=== PATIENT | female | born 1955 | race Caucasian/White ===

== ENCOUNTER 2022-05-06 08:36 | Observation (INO) | payer OTHER ==
[2022-05-04 10:15] LABS: Absolute Lymphocytes (CBC) 1.5 K/uL (0.7-4.9); Hematocrit 38.5 % (36.0-45.0); Lymphocytes % 37.4 % (15.3-44.8); MPV 8.6 fL (7.6-11.3); RBC Red Blood Cell Count 4.09 M/uL (3.86-4.86)
[2022-05-04 10:19] LABS: Protime INR 0.99
[2022-05-04 10:27] LABS: Potassium 3.8 mmol/L (3.5-5.1)
[2022-05-04 12:39] LABS: Specific Gravity 1.005 (1.005-1.030); Urine Bilirubin NEGATIVE (Negative); Urine Blood Negative (Negative); Urine Clarity Clear (Clear); Urine Color Colorless (Yellow); Urine Glucose NEGATIVE (Negative); Urine Protein NEGATIVE (Negative); Urine Urobilinogen Normal (Normal)
[2022-05-06] MEDS ORDERED: Ringers Lactate 1,000 ML IV ONE ×3 (09:03→18:07)
[2022-05-06] MEDS: CEFAZOLIN SODIUM 2 GM/VIAL ONE ×2 (09:07→10:40)
[2022-05-06] MEDS ORDERED: FENTANYL CITR 250 MCG/5 ML ONE (09:15)
[2022-05-06] MEDS ORDERED: NS 0.9% VIAL 20 ML ONE (09:15)
[2022-05-06] MEDS ORDERED: propofoL 200 MG/20 ML VIAL IV ONE (09:15)
[2022-05-06] MEDS ORDERED: MIDAZOLAM HCL 2 MG/2 ML INJ ONE (09:15)
[2022-05-06] MEDS ORDERED: LIDOCAINE 2% MPF 5 ML VIAL ONE (09:15)
[2022-05-06] MEDS ORDERED: VECURONIUM 10 MG/VIAL IV ONE ×2 (09:15→12:42)
[2022-05-06] MEDS ORDERED: LIDOCAINE 1% W/EPI 1:100,000 50 ML MDV ONE (09:22)
[2022-05-06] MEDS ORDERED: NA CHLORIDE 0.9% 100 ML ONE (09:23)
[2022-05-06] MEDS ORDERED: CEFAZOLIN SODIUM 1 GM/VIAL ONE (09:46)
[2022-05-06 09:49] LABS: SARS-CoV-2 Antigen Rapid Res Negative (Negative)
[2022-05-06] MEDS ORDERED: SCOPOLAMINE HYDROBROMIDE PATCH TD ONE (09:52)
[2022-05-06] MEDS: VASOPRESSIN 20 UNIT/ML VIAL ONE ×3 (09:53→15:50)
[2022-05-06] MEDS ORDERED: dexAMETHasone 10 MG/ML VIAL ONE (10:53)
[2022-05-06] MEDS ORDERED: KETOROLAC 30 MG/ML INJ ONE ×2 (10:53→15:47)
[2022-05-06] MEDS ORDERED: FENTANYL CITR 100 MCG/2 ML ONE (15:14)
[2022-05-06] MEDS ORDERED: GLYCOPYRROLATE 0.2 MG/ML SYR ONE (15:38)
[2022-05-06] MEDS ORDERED: NEOSTIGMINE 1 MG/ML -10 ML VIAL ONE (15:39)
[2022-05-06] MEDS ORDERED: Mastisol Adhesive Liq ONE (15:57)
[2022-05-06] MEDS ORDERED: SUGAMMADEX SODIUM 200 MG/2 ML VIAL IV ONE (16:37)
[2022-05-06] MEDS ORDERED: PROMETHAZINE INJ 25 MG/ML AMP IV PRN (16:40)
[2022-05-06] MEDS ORDERED: HYDROCODONE/APAP 5/325 MG TAB PO PRN (16:40)
[2022-05-06] MEDS ORDERED: ACETAMINOPHEN 500 MG TAB PO PRN (16:40)
--- NOTE | 2022-05-06 16:48 | P.BOP ---
Preoperative diagnosis: stage 2 uterovaginal prolapse, cystocele, h/o breast cancer Postoperative diagnosis: same, rectocele Primary procedure: TLH BSO, Pelvic washings, SCP an dpost wall, enterocele repairs Secondary procedure: perineorrhaphy, cystoscopy Balance Staff Inspector: Elba Schwartz Estimated blood loss: 100 Specimen: uterus tubes ovaries, washings Findings: 0/+1/-1/4.5/mod/8/0/0/-5 Anesthesia: General Complications: None Drain(s): Urinary catheter Implants: Upsylon Y-mesh Fluids & blood products: 1600 LR; UO 350 Transferred to: Recovery Room Condition: Good
[2022-05-06] MEDS ORDERED: LIPIDS 20% IV ONE (17:04)
--- OUTSIDE RECORDS SUMMARY | 2022-05-06 17:16 | XMS REPORT | Continuity of Care Document ---
:1955 Author Organization [facility] t Address [address] [place] [address] Care Team Providers Name Role Phone [phone] Primary Care Physician Unavailable Angeli Demarco Attending Clinician Unavailable Shelly Wilson Attending Clinician Unavailable Fly Khan Attending Clinician Unavailable SHARAN DAVILA Attending Clinician Unavailable PETR MARTINI Attending Clinician Unavailable Provider, [facility] Attending Clinician Unavailable MARGAUX HERRERA Attending Clinician Unavailable Doctor Unassigned, [place] Attending Clinician Unavailable EDUARD GUPTA Attending Clinician Unavailable uH Low Attending Clinician Unavailable Jameel Severino Attending Clinician Unavailable DOM BRADLEY Attending Clinician Unavailable EDUARD GUPTA Attending Clinician Unavailable HIEU ZIMMER Admitting Clinician Unavailable Fly Khan Admitting Clinician Unavailable HIEU ZIMMER Admitting Clinician Unavailable NBA MCCONNELL Admitting Clinician Unavailable EDUARD GUPTA Admitting Clinician Unavailable Payers Payer Name Policy Type Policy Number Effective Date Expiration Date Kristie nava AETNA [id number] 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 CIGNA C[id number] [facility] CIGNA C[id number] 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 07-14 Jennifer kes 00:00: Medical 00 Center Malignant Malignant Disease Active [facility] Medica l female female [address] [place] [address] [id number] Primary Problem Common insomnia [facility] [id number] WILLIAM Problem Common (obstructi [facility] ve sleep - [facility] apnea) [facility] [id number] History of Problem Co mmon cancer of [facility] right [facility] breast [facility] [id number] Osteoarthr Problem Co mmon itis of [facility] lower back [facility] [id number] Pure Problem Common hyperchole [facility] sterolemia [facility] Allergies, Adverse Reactions, Alerts Allergy Allergy Status Severity Reaction(s) Onset Inactive Treating Comm ents Source Name Type Date Date Clinician No Known DA Active U 2017-03 [facility] No Known DA Active U 2017-03 [facility] 04[facility]08 [facility] 00:[facility] No Known DA Active U 2017-03 [facility]ie 04[facility] 00:[facility]: [facility] 00 [facility] No Known DA Active U [facility] 1[facility]04 [place] [facility] 00[facility] PACLITAX DRUG Active Unknown-Cmnt Un wil [facility] 8-11 [facility] 00[facility]: [place] [facility] PACLITAX DRUG Active MD [facility] 8-11 Anderso 00:00: n 00 PACLITAX DRUG Active MD [facility] 8-11 Anderso 00:00: n 00 PACLITAX DRUG Active MD [facility] 8-11 Anderso 00:00: n 00 PACLITAX DRUG Active MD [facility] 8-11 Anderso 00:00: n 00 PACLITAX DRUG Active MD [facility] 8-11 Anderso 00:00: n 00 PACLITAX DRUG Active MD [facility] 8-11 Anderso 00:00: n 00 PACLITAX DRUG Active MD [facility] 8-11 Anderso 00:00: n 00 PACLITAX DRUG Active MD [facility] 8-11 Anderso 00:00: n 00 PACLITAX DRUG Active MD [facility] 8-11 Anderso 00:00: n 00 No Known NA Active [facility] 4-17 Hospita s 16:17: l 08 ([facility]) NO KNOWN Allergy Active [facility] Social History Social Habit Start Date Stop Date Quantity Comments Source History of Tobacco [facility] Use [facility] Tobacco use and 2019-07-15 2019-07-15 Never used [facility] exposure 00:00:00 00:00:00 [facility] Sex Ass[birth year] [facility] 00:00:00 00:00:00 [facility] Smoking Status Start Date Stop Date Source Never Smoker [facility] Medications Ordered Filled Start Stop Current Ordering Indication Dosage Frequency Signature Comments Components Source Medication Medication Date Date Medication? Clinician (SIG) Name Name Zolpidem Zolpidem 2021-03 No 1{table QD Zolpidem Tartrate 10 Tartrate 10 2-27 t_at_be Tartrate MG MG 00:00: dtime_a 10 MG 00 s_neede d} predniSONE predniSONE No 2{table QD predniSONE 20 MG 20 MG 8-10 t} 20 MG 00:00: 00 Tessalon Tessalon 0 No 1{capsu TID Tessalon Perles 100 Perles 100 8-10 le_as_n Perles 100 MG MG 00:00: eeded} MG 00 predniSONE predniSONE No 2{table QD predniSONE 20 MG 20 MG 8-10 t} 20 MG 00:00: 00 Tessalon Tessalon No 1{capsu TID Tessalon Perles 100 Perles 100 8-10 le_as_n Perles 100 MG MG 00:00: eeded} MG 00 predniSONE predniSONE No 2{table QD predniSONE 20 MG 20 MG 8-10 t} 20 MG 00:00: 00 Tessalon Tessalon No 1{capsu TID Tessalon Perles 100 Perles 100 8-10 le_as_n Perles 100 MG MG 00:00: eeded} MG 00 predniSONE predniSONE No 2{table QD predniSONE 20 MG 20 MG 8-10 t} 20 MG 00:00: 00 Tessalon Tessalon No 1{capsu TID Tessalon Perles 100 Perles 100 8-10 le_as_n Perles 100 MG MG 00:00: eeded} MG 00 predniSONE predniSONE No 2{table QD predniSONE 20 MG 20 MG 8-10 t} 20 MG 00:00: 00 Tessalon Tessalon 0 No 1{capsu TID Tessalon Perles 100 Perles 100 8-10 le_as_n Perles 100 MG MG 00:00: eeded} MG 00 predniSONE predniSONE No 2{table QD predniSONE 20 MG 20 MG 8-10 t} 20 MG 00:00: 00 Tessalon Tessalon 0 No 1{capsu TID Tessalon Perles 100 Perles 100 8-10 le_as_n Perles 100 MG MG 00:00: eeded} MG 00 predniSONE predniSONE No 2{table QD predniSONE 20 MG 20 MG 8-10 t} 20 MG 00:00: 00 Tessalon Tessalon No 1{capsu TID Tessalon Perles 100 Perles 100 8-10 le_as_n Perles 100 MG MG 00:00: eeded} MG 00 Zolpidem Zolpidem 2021-0 No 1{table QD Zolpidem Tartrate 10 Tartrate 10 7-15 t_at_be Tartrate MG MG 00:00: dtime_a 10 MG 00 s_neede d} Zolpidem Zolpidem 2-0 No 1{table QD Zolpidem Tartrate 10 Tartrate 10 7-15 t_at_be Tartrate MG MG 00:00: dtime_a 10 MG 00 s_neede d} Zolpidem Zolpidem 2-0 No 1{table QD Zolpidem Tartrate 10 Tartrate 10 7-15 t_at_be Tartrate MG MG 00:00: dtime_a 10 MG 00 s_neede d} Zolpidem Zolpidem 2021-0 No 1{table QD Zolpidem Tartrate 10 Tartrate 10 7-15 t_at_be Tartrate MG MG 00:00: dtime_a 10 MG 00 s_neede d} Zolpidem Zolpidem 2021-0 No 1{table QD Zolpidem Tartrate 10 Tartrate 10 7-15 t_at_be Tartrate MG MG 00:00: dtime_a 10 MG 00 s_neede d} Zolpidem Zolpidem 2021-0 No 1{table QD Zolpidem Tartrate 10 Tartrate 10 7-15 t_at_be Tartrate MG MG 00:00: dtime_a 10 MG 00 s_neede d} Zolpidem Zolpidem 2-0 No 1{table QD Zolpidem Tartrate 10 Tartrate 10 7-15 t_at_be Tartrate MG MG 00:00: dtime_a 10 MG 00 s_neede d} Zolpidem Zolpidem 2-0 No 1{table QD Zolpidem Tartrate 10 Tartrate 10 7-15 t_at_be Tartrate MG MG 00:00: dtime_a 10 MG 00 s_neede d} Zolpidem Zolpidem 2-0 No 1{table QD Zolpidem Tartrate 10 Tartrate 10 6-27 t_at_be Tartrate MG MG 00:00: dtime_a 10 MG 00 s_neede d} Zolpidem Zolpidem 2-0 No 1{table QD Zolpidem Tartrate 10 Tartrate 10 6-27 t_at_be Tartrate MG MG 00:00: dtime_a 10 MG 00 s_neede d} Zolpidem Zolpidem 2-0 No 1{table QD Zolpidem Tartrate 10 Tartrate 10 6-27 t_at_be Tartrate MG MG 00:00: dtime_a 10 MG 00 s_neede d} Zolpidem Zolpidem 2-0 No 1{table QD Zolpidem Tartrate 10 Tartrate 10 6-27 t_at_be Tartrate MG MG 00:00: dtime_a 10 MG 00 s_neede d} Zolpidem Zolpidem 2-0 No 1{table QD Zolpidem Tartrate 10 Tartrate 10 6-27 t_at_be Tartrate MG MG 00:00: dtime_a 10 MG 00 s_neede d} Zolpidem Zolpidem 2-0 No 1{table QD Zolpidem Tartrate 10 Tartrate 10 6-27 t_at_be Tartrate MG MG 00:00: dtime_a 10 MG 00 s_neede d} Zolpidem Zolpidem 2-0 No 1{table QD Zolpidem Tartrate 10 Tartrate 10 6-27 t_at_be Tartrate MG MG 00:00: dtime_a 10 MG 00 s_neede d} Zolpidem Zolpidem 2-0 No 1{table QD Zolpidem Tartrate 10 Tartrate 10 6-27 t_at_be Tartrate MG MG 00:00: dtime_a 10 MG 00 s_neede d} Zolpidem Zolpidem 2-0 No 1{table QD Zolpidem Tartrate 10 Tartrate 10 3-16 t_at_be Tartrate MG MG 00:00: dtime_a 10 MG 00 s_neede d} Zolpidem Zolpidem 2-0 No 1{table QD Zolpidem Tartrate 10 Tartrate 10 3-16 t_at_be Tartrate MG MG 00:00: dtime_a 10 MG 00 s_neede d} Zolpidem Zolpidem 2020-03 No 1{table QD Zolpidem Tartrate 10 Tartrate 10 2-01 t_at_be Tartrate MG MG 00:00: dtime_a 10 MG 00 s_neede d} Zolpidem Zolpidem 2020-03 No 1{table QD Zolpidem Tartrate 10 Tartrate 10 1-09 t_at_be Tartrate MG MG 00:00: dtime_a 10 MG 00 s_neede d} tamoxifen 2020-0 Yes 10mg QD Take [address] (NOLVADEX) 5-04 [facility] 10 MG 17:01: daily. Medical tablet 53 Center gabapentin 2020-0 Yes 300mg Q.5D Take [address] (NEURONTIN) 5-04 mg by [facility] 300 MG 17:01: mouth 2 Medical capsule 53 (two) Center times daily. zolpidem 20200 Yes 10mg Take [address] (AMBIEN) 10 5-04 by mouth [facility] mg tablet 17:01: every Medical 53 night as Center needed for Insomnia. multivitami 2020-0 Yes 1{capsu QD Take [address] n capsule 5-04 le} capsule by Luke s 17:01: mouth Medical 53 daily. Center cholecalcif 2020-0 Yes 2000U QD Take 2,[address] elana, 5-04 Units by [facility] vitamin D3, 17:01: mouth Medic al 2,000 unit 53 daily. Center Tab Gabapentin Gabapentin No Gabapentin 300 MG 300 MG 300 MG Gabapentin Gabapentin No Gabapentin 300 MG 300 MG 300 MG Gabapentin Gabapentin No Gabapentin 300 MG 300 MG 300 MG Amoxicillin Amoxicillin No 1{table BID Amoxicilli -Pot -Pot t} n-Pot Clavulanate Clavulanate Clavulanat 875-125 MG 875-125 MG e 875-125 MG Gabapentin Gabapentin No Gabapentin 300 MG 300 MG 300 MG Amoxicillin Amoxicillin No 1{table BID Amoxicilli -Pot -Pot t} n-Pot Clavulanate Clavulanate Clavulanat 875-125 MG 875-125 MG e 875-125 MG Gabapentin Gabapentin No Gabapentin 300 MG 300 MG 300 MG Amoxicillin Amoxicillin No 1{table BID Amoxicilli -Pot -Pot t} n-Pot Clavulanate Clavulanate Clavulanat 875-125 MG 875-125 MG e 875-125 MG Gabapentin Gabapentin No Gabapentin 300 MG 300 MG 300 MG Amoxicillin Amoxicillin No 1{table BID Amoxicilli -Pot -Pot t} n-Pot Clavulanate Clavulanate Clavulanat 875-125 MG 875-125 MG e 875-125 MG Gabapentin Gabapentin No Gabapentin 300 MG 300 MG 300 MG Amoxicillin Amoxicillin No 1{table BID Amoxicilli -Pot -Pot t} n-Pot Clavulanate Clavulanate Clavulanat 875-125 MG 875-125 MG e 875-125 MG Gabapentin Gabapentin No Gabapentin 300 MG 300 MG 300 MG Amoxicillin Amoxicillin No 1{table BID Amoxicilli -Pot -Pot t} n-Pot Clavulanate Clavulanate Clavulanat 875-125 MG 875-125 MG e 875-125 MG Gabapentin Gabapentin No Gabapentin 300 MG 300 MG 300 MG Gabapentin Gabapentin No Gabapentin 300 MG 300 MG 300 MG Amoxicillin Amoxicillin No 1{table BID Amoxicilli -Pot -Pot t} n-Pot Clavulanate Clavulanate Clavulanat 875-125 MG 875-125 MG e 875-125 MG Gabapentin Gabapentin No Gabapentin 300 MG 300 MG 300 MG Zolpidem Zolpidem No Zolpidem Tartrate 10 Tartrate 10 Tartrate MG MG 10 MG Gabapentin Gabapentin No Gabapentin 300 MG 300 MG 300 MG Gabapentin Gabapentin No Gabapentin 300 MG 300 MG 300 MG Gabapentin Gabapentin No Gabapentin 300 MG 300 MG 300 MG Immunizations Ordered Immunization Filled Immunization Date Status Commen ts Source Name Name Prevnar 20 (PCV20) Prevnar 20 (PCV20) 2021-09-07 Completed [facility] 13:50:00 - [facility] Adacel (Tdap) Adacel (Tdap) 2021-09-07 Completed [facility] - [facility] Prevnar 20 (PCV20) Prevnar 20 (PCV20) 2021-09-07 Completed [facility] 13:50:00 - [facility] Adacel (Tdap) Adacel (Tdap) 2021-09-07 Completed [facility] - [facility] Prevnar 20 (PCV20) Prevnar 20 (PCV20) 2021-09-07 Completed [facility] 13:50:00 - [facility] Adacel (Tdap) Adacel (Tdap) 2021-09-07 Completed [facility] - [facility] Prevnar 20 (PCV20) Prevnar 20 (PCV20) 2021-09-07 Completed [facility] 13:50:00 - [facility] Adacel (Tdap) Adacel (Tdap) 2021-09-07 Completed [facility] - [facility] Prevnar 20 (PCV20) Prevnar 20 (PCV20) 2021-09-07 Completed [facility] 13:50:00 - [facility] Adacel (Tdap) Adacel (Tdap) 2021-09-07 Completed [facility] - [facility] Prevnar 20 (PCV20) Prevnar 20 (PCV20) 2021-09-07 Completed [facility] 13:50:00 - [facility] Adacel (Tdap) Adacel (Tdap) 2021-09-07 Completed [facility] - [facility] Prevnar 20 (PCV20) Prevnar 20 (PCV20) 2021-09-07 Completed [facility] 13:50:00 - [facility] Adacel (Tdap) Adacel (Tdap) 2021-09-07 Completed [facility] - [facility] Prevnar 20 (PCV20) Prevnar 20 (PCV20) 2021-09-07 Completed [facility] 13:50:00 - [facility] Adacel (Tdap) Adacel (Tdap) 2021-09-07 Completed [facility] - [facility] Prevnar 20 (PCV20) Prevnar 20 (PCV20) 2021-09-07 Completed [facility] 13:50:00 - [facility] Adacel (Tdap) Adacel (Tdap) 2021-09-07 Completed [facility] - [facility] Flucelvax - Flucelvax - 2021-01-05 Completed [facility] multidose vial multidose vial 16:02:00 - [facility] Flucelvax - Flucelvax - 2021-01-05 Completed [facility] multidose vial multidose vial 16:02:00 - [facility] Flucelvax - Flucelvax - 2021-01-05 Completed [facility] multidose vial multidose vial 16:02:00 - [facility] Flucelvax - Flucelvax - 2021-01-05 Completed [facility] multidose vial multidose vial 16:02:00 - [facility] Flucelvax - Flucelvax - 2021-01-05 Completed [facility] multidose vial multidose vial 16:02:00 - [facility] Flucelvax - Flucelvax - 2021-01-05 Completed [facility] multidose vial multidose vial 16:02:00 - [facility] Flucelvax - Flucelvax - 2021-01-05 Completed [facility] multidose vial multidose vial 16:02:00 - [facility] Flucelvax - Flucelvax - 2021-01-05 Completed [facility] multidose vial multidose vial 16:02:00 - [facility] Flucelvax - Flucelvax - 2021-01-05 Completed [facility] multidose vial multidose vial 16:02:00 - [facility] Flucelvax - Flucelvax - 2021-01-05 Completed [facility] multidose vial multidose vial 16:02:00 - [facility] Flucelvax - Flucelvax - 2021-01-05 Completed [facility] multidose vial multidose vial 16:02:00 - [facility] Flucelvax - Flucelvax - 2021-01-05 Completed [facility] multidose vial multidose vial 16:02:00 - [facility] Flucelvax - Flucelvax - 2021-01-05 Completed [facility] multidose vial multidose vial 16:02:00 - [facility] Flucelvax - Flucelvax - 2021-01-05 Completed [facility] multidose vial multidose vial 16:02:00 [facility] Tetanus Toxoid (TT) Tetanus Toxoid (TT) 2020-08-11 Completed [facility] 16:08:00 [facility] Tetanus Toxoid (TT) Tetanus Toxoid (TT) 2020-08-11 Completed [facility] 16:08:00 [facility] Tetanus Toxoid (TT) Tetanus Toxoid (TT) 2020-08-11 Completed [facility] 16:08:00 [facility] Tetanus Toxoid (TT) Tetanus Toxoid (TT) 2020-08-11 Completed [facility] 16:08:00 [facility] Tetanus Toxoid (TT) Tetanus Toxoid (TT) 2020-08-11 Completed [facility] 16:08:00 [facility] Tetanus Toxoid (TT) Tetanus Toxoid (TT) 2020-08-11 Completed [facility] 16:08:00 [facility] Tetanus Toxoid (TT) Tetanus Toxoid (TT) 2020-08-11 Completed [facility] 16:08:00 [facility] Tetanus Toxoid (TT) Tetanus Toxoid (TT) 2020-08-11 Completed [facility] 16:08:00 [facility] Tetanus Toxoid (TT) Tetanus Toxoid (TT) 2020-08-11 Completed [facility] 16:08:00 [facility] Tetanus Toxoid (TT) Tetanus Toxoid (TT) 2020-08-11 Completed [facility] 16:08:00 [facility] Tetanus Toxoid (TT) Tetanus Toxoid (TT) 2020-08-11 Completed [facility] 16:08:00 [facility] Tetanus Toxoid (TT) Tetanus Toxoid (TT) 2020-08-11 Completed [facility] 16:08:00 [facility] Tetanus Toxoid (TT) Tetanus Toxoid (TT) 2020-08-11 Completed [facility] 16:08:00 [facility] Tetanus Toxoid (TT) Tetanus Toxoid (TT) 2020-08-11 Completed [facility] 16:08:00 - [facility] Flucelvax - Flucelvax - 2019-04-13 Completed [facility] multidose vial 13:47:00 - [facility] Flucelvax - Flucelvax - 2019-04-13 Completed [facility] multidose [facility]ial multidose vial 13:47:00 - [facility] Flucelvax - Flucelvax - 2019-04-13 Completed [facility] multidose [facility]ial multidose vial 13:47:00 - [facility] Flucelvax - Flucelvax - 2019-04-13 Completed [facility]ial multidose vial 13:47:00 - [facility] Flucelvax - Flucelvax 2019-04-13 Completed [facility] multidose [facility]ial multidose vial 13:47:00 - [facility] Flucelvax - Flucelvax 2019-04-13 Completed [facility] multidose vial multidose vial 13:47:00 - [facility] Flucelvax - Flucelvax 2019-04-13 Completed [facility] multidose vial multidose vial 13:47:00 - [facility] Flucelvax - Flucelvax 2019-04-13 Completed [facility] multidose vial multidose vial 13:47:00 - [facility] Flucelvax - Flucelvax 2019-04-13 Completed [facility] multidose vial multidose vial 13:47:00 - [facility] Flucelvax - Flucelvax - 2019-04-13 Completed [facility] multidose vial multidose vial 13:47:00 - [facility] Flucelvax - Flucelvax - 2019-04-13 Completed [facility] multidose [facility]ial multidose vial 13:47:00 - [facility] Flucelvax - Flucelvax 2019-04-13 Completed [facility] multidose vial multidose vial 13:47:00 - [facility] Flucelvax - Flucelvax - 2019-04-13 Completed [facility] multidose vial multidose vial 13:47:00 - [facility] Flucelvax - Flucelvax - 2019-04-13 Completed [facility] multidose vial multidose vial 13:47:00 [facility] Vital Signs Vital Name Observation Time Observation Value Comments Source height 2022-03-09 10:00:00 67 [in_i] [facility] weight 2022-03-09 10:00:00 145 [lb_av] [facility] temperature 2022-03-09 10:00:00 97.7 [degF] [facility] bmi 2022-03-09 10:00:00 22.71 kg/m2 [facility] oximetry 2022-03-09 10:00:00 98 % [facility] respiratory rate 2022-03-09 10:00:00 16 /min Comm on [facility] blood pressure 2022-03-09 10:00:00 126 mm[Hg] [facility] systolic [facility] blood pressure 2022-03-09 10:00:00 84 mm[Hg] [facility] diastolic [facility] height 2021-11-19 11:20:00 67 [in_i] [facility] weight 2021-11-19 11:20:00 142 [lb_av] [facility] bmi 2021-11-19 11:20:00 22.24 kg/m2 [facility] height 2021-10-21 13:20:00 67 [in_i] [facility] weight 2021-10-21 13:20:00 144 [lb_av] [facility] bmi 2021-10-21 13:20:00 22.55 kg/m2 [facility] height 2021-09-07 13:20:00 67 [in_i] [facility] weight 2021-09-07 13:20:00 147.4 [lb_av] [facility] temperature 2021-09-07 13:20:00 98.6 [degF] [facility] bmi 2021-09-07 13:20:00 23.08 kg[facility]m2 [facility] oximetry 2021-09-07 13:20:00 99 % [facility] respiratory rate 2021-09-07 13:20:00 16 /min Comm on [facility] blood pressure 2021-09-07 13:20:00 122 mm[Hg] Common [facility] - systolic [facility] blood pressure 2021-09-07 13:20:00 74 mm[Hg] Common [facility] - diastolic [facility] bmi 2021-05-27 10:40:00 24.05 kg/m2 [facility] oximetry 2021-05-27 10:40:00 98 % [facility] respiratory rate 2021-05-27 10:40:00 16 /min Comm on [facility] blood pressure 2021-05-27 10:40:00 120 mm[Hg] Common [facility] - systolic [facility] blood pressure 2021-05-27 10:40:00 71 mm[Hg] [facility] diastolic [facility] height 2021-05-27 10:40:00 67 [in_i] [facility] weight 2021-05-27 10:40:00 153.6 [lb_av] [facility] temperature 2021-05-27 10:40:00 98.4 [degF] [facility] height 2021-01-05 13:40:00 67 [in_i] [facility] weight 2021-01-05 13:40:00 151.6 [lb_av] [facility] temperature 2021-01-05 13:40:00 98.1 [degF] [facility] bmi 2021-01-05 13:40:00 23.74 kg/m2 [facility] oximetry 2021-01-05 13:40:00 99 % [facility] respiratory rate 2021-01-05 13:40:00 16 /min Comm on [facility] blood pressure 2021-01-05 13:40:00 113 mm[Hg] [facility] - systolic [facility] blood pressure 2021-01-05 13:40:00 76 mm[Hg] [facility] - diastolic [facility] HEIGHT 2020-05-21 12:59:06 169 cm WEIGHT 2020-05-21 12:59:06 68.7 kg Procedures This patient has no known procedures. Plan of Care Planned Activity Planned Date Details Comments Source Future Scheduled 2024-07-15 Lipid panel (procedure) [facility] Test 00:00:00 [code = [id number]] Medical Ce nter Future Scheduled 2022-03-[address] [facility] Test 00:00:00 (12+) [code = [facility] Center DEPRESSION SCREENING (12+)] Future Scheduled 2021-11-12 INFLUENZA VACCINE (#1) [facility] 00:00:00 [code = INFLUENZA Medical Ce nter VACCINE (#1)] Future Scheduled 2021-05-03 Screening for malignant [facility] Test 00:00:00 neoplasm of breast Medical C enter (procedure) [code = [id number]] Future Scheduled 2020-07-[address] [facility] Test 00:00:00 [facility] r Screening (12+) [code = Tobacco Cessation Counseling and Screening (12+)] Future Scheduled 2007 SHINGLES VACCINES ([address] [facility] Test 00:00:00 2) [code = SHINGLES [facility] VACCINES (1 of 2)] Future Scheduled 1978 Screening for malignant [facility] Test 00:00:00 neoplasm of cervix Medical C enter (procedure) [code = 294376730] Future Scheduled 1976 DTAP/TDAP/TD VACCINES [facility] 00:00:00 (1 - Tdap) [code = Medical C enter DTAP/TDAP/TD VACCINES (1 - Tdap)] Future Scheduled 1975 HEPATITIS C SCREENING [facility] 00:00:00 [code = HEPATITIS C [facility] SCREENING] Future Scheduled 1957 COVID-19 VACCINE (#1) [facility] 00:00:00 [code = COVID-[address] VACCINE (#1)] Future Scheduled 1957 Screening for malignant [facility] 00:00:00 neoplasm of colon Medical Ce nter (procedure) [code = 525531049] Future Scheduled 1957 Screening for malignant [facility] 00:00:00 neoplasm of colon Medical Ce nter (procedure) [code = 307083737] Future Scheduled 1955 Sigmoidoscopy [code = [facility] 00:[facility] Sigmoidoscopy] Medical Cente r Future Scheduled 1957 CT Colonography (combo) [facility] 00:00:00 [code = CT Colonography [facility] (combo)] Future Scheduled 1957 Screening for malignant [facility] 00:00:00 neoplasm of colon Medical Ce nter (procedure) [code = 118519173] Future Scheduled 1957 Screening for malignant [facility] 00:00:00 neoplasm of colon Medical Ce nter (procedure) [code = 716945333] Encounters Start End Encounter Admission Attending Care Care Encounter Source Date/Time Date/Time Type Type Clinicians Facility Department ID 2022 Inpatient MATEO Demarco [id number] [facility] 08:00:[address] [place] [address] 2022-03-09 Out[facility], [facility] [id number] Common 07:43:00 [facility] 2022-03-03 Outpatient [facility], [facility] [id number] Common 08:45:01 [facility] 2022-03-01 Outpatient Wilson, [facility] [id number] Common 15:19:03 [facility] 2022-02-25 Outpatient [facility] [id number] Common 10:39:03 Shelly [address] [facility] 2021-12-03 Outpatient Wilson, [facility] [id number] Common 10:26:02 Shelly [facility] 2021-11-24 Outpatient Wilson, [facility] [id number] Common 14:34:01 Shelly [facility] 2021-11-23 Outpatient Wilson, [facility] [id number] Common 14:51:02 Shel[facility] 2021-10-05 Outpatient Wilson, [facility] [id number] Common 08:11:01 Shelly [facility] 2021-09-03 Outpatient Wilson, [facility] [id number] Common 11:02:03 [facility] 2021-08-18 Outpatient Wilson, [facility] [id number] Common 11:36:02 Shelly [facility] 2021-05-27 Outpatient Wilson, [facility] [id number] Common 08:56:04 [facility] 2021-04-08 Outpatient Wilson, [facility] [id number] Common 14:39:53 [facility] 2021-04-08 Outpatient [facility] [id number] Common 14:04:36 92396 [facility] 2021-01-04 [facility] [id number] [facility] 21:43:23 [id number] [facility] 2021-01-04 Out[facility] [id number] [facility] 20:52:33 [facility] 2021-01-04 Outpatient [facility] [id number] [facility] 20:44:34 [facility] 2021-01-04 Outpatient [facility] [id number] [facility] 20:42:28 [facility] 2021-01-03 Outpatient [facility] [id number] [facility] 06:45:20 [id number] [facility] 2021-01-03 Outpatient [facility] [id number] [facility] 06:35:05 [id number] [facility] 2021-01-03 Outpatient [facility] [id number] [facility] 02:16:43 [id number] [facility] 2021-01-03 Outpatient [facility] [id number] [facility] 01:02:53 [id number] [facility] 2021-01-03 Outpatient [facility] [id number] [facility] 00:27:31 Health 2021-01-02 Outpatient [facility] [id number] [facility] 23:48:58 [id number] [facility] 2021-01-02 Outpatient [facility] [id number] [facility] 23:25:05 [id number] [facility] 2021-01-02 Outpatient [facility] [id number] [facility] 23:21:37 [id number] [facility] 2021-01-02 Outpatient [facility] [id number] [facility] 18:59:38 [facility] 2021-01-02 Outpatient [facility] [id number] [facility] 18:39:11 [facility] 2021-01-02 Outpatient [facility] [id number] [facility] 17:48:09 [facility] 2020-08-05 Inpatient DELVIN Villa [facility] [id number] [facility] 11:22:31 Fly Lilliam [facility] 2019-07-15 Inpatient [facility] [id number] [facility] 20:00:36 [id number] 2022-03-09 2022-03-09 [facility] [id number] Co mmon 00:00:00 00:00:00 VISIT EST Spir it PT LEVEL 3 - [facility] 2021-12-31 2021-12-31 Outpatient SHARAN VERDIN [facility] [id number] 08:41:14 09:42:55 Juan Carlos humphreys 2021-11-20 2021-11-20 (TEL) [facility] [id number] Co mmon 00:00:00 00:00:00 Spirit - [facility] 2021-11-19 2021-11-19 [facility] [id number] Co mmon 00:00:00 00:00:00 VISIT EST Spir it PT LEVEL 3 [facility] 2021-10-21 2021-10-21 OFFICE ST[facility]C ST[facility]C [id number] Co mmon 00:00:00 00:00:00 VISIT EST Spir it PT LEVEL [address] [place] [address] 2021-10-21 2021-10-21 (TEL) [facility] ST[facility] [id number] Co mmon 00:00:00 00:00:00 [facility] 2021-10-21 2021-10-21 (TEL) [facility] STL[facility]C [id number] Co mmon 00:00:00 00:00:00 [facility] 2021-10-14 2021-10-14 OFFICE [facility]C STL[facility]C [id number] Co mmon 00:00:00 00:00:00 VISIT EST Spir it PT LEVEL [address] [place] [address] 2021-09-07 2021-09-07 (WELLNESS) STLMLC STLMLC [id number] Common 00:00:00 00:00:00 Wellness Spiri t [facility] 2021-08-05 2021-08-05 (TEL) STLMLC STLMLC [id number] Co mmon 00:00:00 00:00:00 [facility] 2021-06-17 2021-06-17 Outpatient PETR WASHBURN ANA MDA [id number] 14:17:43 14:17:43 Juan Carlos o petr 2021-06-17 2021-06-17 Outpatient PETR WASHBURN ANA MDA [id number] 13:32:59 13:32:59 Juan Carlos o petr 2021-06-17 2021-06-17 Outpatient PETR WASHBURN ANA MDA [id number] 12:22:49 12:22:49 Juan Carlos o petr 2021-05-27 2021-05-27 OFFICE STL[facility]C STL[facility]C [id number] Co mmon 00:00:00 00:00:00 VISIT EST Spir it PT LEVEL [address] [place] [address] 2021-02-11 2021-02-11 (TEL) [facility] STL[facility] [id number] Co mmon 00:00:00 00:00:00 [facility] 2021-01-20 2021-01-20 (TEL) STLMLC STLMLC [id number] Co mmon 00:00:00 00:00:00 [facility] 2021-01-15 2021-01-15 Outpatient CASSIDY VillaTO PAIN [id number] [facility] 13:00:00 13:00:00 Fly 09 [facility] 2021-01-05 2021-01-05 OFFICE [facility] [id number] Co mmon 00:00:00 00:00:00 VISIT NEW Spir it PT LEVEL 3 - [facility] 2020-10-13 2020-10-13 Outpatient CASSIDY VillaTO PAIN [id number] [facility] 09:43:00 09:43:00 Fly Clarke [facility] 2020-08-02 2020-08-02 Urgent Provider, [facility] [id number] 10:07:46 10:27:46 Care [facility] [id number] Care Curtis [id number] Professio [id number] nal [address] 2020-08-02 2020-08-02 Outpatient Jay [facility] [id number] Univers 10:20:00 10:20:[address] [facility] 2020-08-02 2020-08-02 Orders Doctor ESCALANTE [id number] 00:00:00 00:00:00 Only Unassigned, HOSSEIN [id number] [place] [facility] [id number] [id number] 2020-05-21 2020-05-21 Outpatient PETR WASHBURN MDA, MDA [id number] 12:47:41 13:45:29 Juan Carlos o petr 2020-05-21 2020-05-21 Outpatient PETR WASHBURN MDA, MDA [id number] 12:13:14 12:13:14 Juan Carlos o petr 2020-03-18 2020-03-18 Outpatient SITA GUPTA [id number] [facility] 09:05:00 09:05:[address] 2019-09-27 2019-09-28 Outpatient SITA GUPTA [id number] [facility] 14:40:00 09:23:[address] 2019-09-10 2019-09-10 Outpatient Doctor, CASSIDYTO PAIN [id number] [facility] 13:00:00 13:00:00 Hu 01 [facility] 2019-08-06 2019-08-06 Outpatient CASSIDY SeverinoTO RADI [id number] [facility] 11:30:00 11:30:00 Jameel Suarez [facility] 2019-05-21 2019-05-21 Outpatient SITA GUPTA [id number] [facility] 10:18:00 10:18:[address] 2018-10-24 2018-10-24 Outpatient 3 JOSE GUPTA SLE [id number] 20:00:00 20:00:00 [place] [id number] Hospi [facility] l ([facility] nt) Results Test Description Test Time Test Comments Results Result [facility] e Comments - XR FLUORO FOR 2021-01-15 SPINE INJ 18:44:00 [facility] 1955 Sex: F Patient Name: SAMMIE JACKSON Unit No: [id number] EXAMS: CPT CODE: [id number] XR FLUORO FOR SPINE INJ 53089 LUMBAR EPIRADICULAR INJECTION REFERRAL PHYSICIAN: Farzana Severino M.D. PREOPERATIVE DIAGNOSIS: Lumbar Radiculitis POSTOPERATIVE DIAGNOSIS: Lumbar disc degeneration with stenosis and possible bilateral L4 or L5 radicular pain PROCEDURES PERFORMED: Fluoroscopically guided needle localization of the bilateral L4 and bilateral L5 spinal nerves with transforaminal epidurograms and epidural injection of local anesthetic and steroid. FINDINGS: Good flow seen through all foramen however proximal flow was very obstructed in the bilateral L3-4 and L4-5 lateral recesses and centrally across the L3-4 and L4-5 discs. Provocation with injection was negative. Anesthetic response was positive with the patient noting relief of her low back and bilateral lower extremity pain. Preinjection VAS 4/10. Postinjection VAS 0/10. Steroid response pending follow-up. ESTIMATED BLOOD LOSS: Minimal ANESTHESIA: TIVA COMPLICATIONS: None DETAILS OF PROCEDURE: After obtaining stable vital signs, informed consent and IV access, with no contraindications, the patient was taken to the operating room and placed in a prone position with all extremities padded and appropriate monitors placed. The patient was sterilely prepped and draped over the lumbosacral spine. Using fluoroscopic visualization the insertion sites were marked for paravertebral approaches and using standard technique, a 25 gauge needle was advanced to the base of each pedicle without paresthesias. Isovue-300 contrast 0.2 mL of was injected incrementally with frequent negative aspirations to produce each epidurogram. There were no signs of intravascular or intrathecal uptake. Bupivicaine 0.75% 0.25 mL with lidocaine 4% 0.5 mL and Decadron 5 mg was then incrementally injected with frequent negative aspirations and again there were no signs of intravascular or intrathecal uptake. The needles were removed and the patient was taken to the PACU in good condition. Image: Image 1 Image: Image 2 at 1844 Reported and signed by: Fly Khan M.D. [facility] NAME: SAMMIE JACKSONN [address] [facility] PHYS: Fly Davison MD [place], [place] [address] : 1955 AGE: 65 SEX: F LOC: DARIEL PHONE #: [phone] EXAM DATE: 01/15/2021 STATUS: [facility] FA[facility] #: [phone] RAD #: D/C DT PAGE 1 Signed Report (CONTINUED) Patient Name: SAMMIE JACKSON Unit No: [id number] EXAMS: CPT CODE: [id number] XR FLUORO FOR SPINE INJ 98507 (Continued) CC: Technologist: Joleen Trevino(R) Transcribed D/ (1843) Shiva [facility] NAME: SAMMIE JACKSON [address] [facility] PHYS: Fly Davison MD [place] [address] : 1955 AGE: 65 SEX: F LOC: DARIEL PHONE #: [phone] EXAM DATE: 01/15/2021 STATUS: [facility] FA[facility] #: [phone] RAD #: D/C DT PAGE 2 Signed Report Patient Name: SAMMIE JACKSON Unit No: [id number] EXAMS: CPT CODE: [id number] XR FLUORO FOR SPINE INJ 04457 (Continued) Orig Print D/T: S: 01/15/2021 (1846) [facility] NAME: SAMMIE JACKSON [address] [facility] PHYS: Fly Davison MD [place] [address] : 1955 AGE: 65 SEX: F LOC: DARIEL PHONE #: [phone] EXAM DATE: 01/15/2021 STATUS: [facility] FA[facility] #: [phone] RAD #: D/C DT PAGE 3 Signed Report - XR FLUORO FOR 2020-10-14 SPINE INJ 17:31:00 [facility] 1955 Sex: F Patient Name: SAMMIE JACKSON Unit No: [id number] EXAMS: CPT CODE: [id number] XR FLUORO FOR SPINE INJ 03400 LUMBAR FACET INJECTION DIAGNOSTIC REFERRAL PHYSICIAN: None PREOPERATIVE DIAGNOSIS: Lumbar spondylosis without myelopathy or radiculopathy POSTOPERATIVE DIAGNOSIS: Lumbar spondylosis without myelopathy or radiculopathy PROCEDURE PERFORMED: Fluoroscopically guided needle localization of the bilateral L4-5 facets with arthrograms and diagnostic injection of local anesthetic and steroid. FINDINGS: Marked capsular degeneration was seen on the right with moderate capsular degeneration on the left. Joint hypertrophy was seen on the right. Provocation with injection was negative. Anesthetic response was positive with the patient noting relief of her low back pain. Preinjection VAS 3/10. Postinjection VAS 0/10. Steroid response pending follow-up. ESTIMATED BLOOD LOSS: Minimal ANESTHESIA: TIVA COMPLICATIONS: None DETAILS OF PROCEDURE: After obtaining stable vital signs, informed consent and IV access patient was taken to the fluoroscopy suite where the patient was placed in a prone position with all extremities padded and appropriate monitors placed. The patient was sterilely prepped prepped and draped over the lumbosacral spine. Using fluoroscopic visualization, the insertion sites were marked for a paravertebral approach to each joint. Using standard technique, a 26 -gauge needle was inserted into each joint capsule without paresthesias. At all levels, aspiration was negative for clear serous fluid. Isovue-300 contrast 0.2 mL was injected to produce each arthrogram. There were no signs of intravascular or intrathecal uptake. Bupivicaine 0.75% 0.25 mL with Lidocaine 4% 0.25 ml and triamcinolone 16 mg was then injected incrementally into each joint. There were no signs of intravascular or intrathecal uptake. The patient's vital signs remained stable. All needles were removed and the patient was taken to the PACU in good condition. Image: Image 1 Image: Image 2 Image: Image 3 [facility] NAME: SAMMIE JACKSON [address] [facility] PHYS: Fly Davison MD [place], [place] [address] : 1955 AGE: 65 SEX: F LOC: DARIEL PHONE #: [phone] EXAM DATE: 10/13/2020 STATUS: [facility] FAX #: [phone] RAD #: D/C DT PAGE 1 Signed Report (CONTINUED) Patient Name: SAMMIE JACKSON Unit No: [id number] EXAMS: CPT CODE: [id number] XR FLUORO FOR SPINE INJ 03057 (Continued) at 1731 Reported and signed by: Fly Khan M.D. CC: Technologist: Joleen Trevino(R) Transcribed D/ (1730) [facility] NAME: SAMMIE JACKSON [address] [facility] PHYS: Fly Davison MD [place] [address] : 1955 AGE: 65 SEX: F LOC: DARIEL PHONE #: [phone] EXAM DATE: 10/13/2020 STATUS: [facility] FAX #: [phone] RAD #: D/C DT PAGE 2 Signed Report Patient Name: SAMMIE JACKSON Unit No: [id number] EXAMS: CPT CODE: [id number] XR FLUORO FOR SPINE INJ 71924 (Continued) Orig Print D/T: S: 10/14/2020 (1733) [facility] NAME: SAMMIE JACKSON [address] [facility] PHYS: Fly Davison MD [place] [address] : 1955 AGE: 65 SEX: F LOC: DARIEL PHONE #: [phone] EXAM DATE: 10/13/2020 STATUS: [facility] FAX #: [phone] RAD #: D/C DT PAGE 3 Signed Report - XR L-SPINE 2020-08-15 W/BEND VIEW 16:40:00 [facility] : 1955 Sex: F Patient Name: SAMMIE JACKSON Unit No: [id number] EXAMS: CPT CODE: [id number] XR L-SPINE W/BEND VIEW 59190 LUMBAR SPINE 5 VIEWS PLUS FLEXION AND EXTENSION COMMENT: COMPARISON: No prior exams available. There is a scoliosis convex left. Vertebral body heights are maintained. No focal interspace narrowing is seen. There is no evidence for abnormal motion with flexion and extension. at 1640 Reported and signed by: Dayo Shoemaker MD CC: Fly Khan MD Technologist: ALVARO ALFARO, RT(R) Transcribed D/ (1640) [email or web address] [facility] NAME: SAMMIE JACKSON [address] [facility] PHYS: Fly Davison MD : 1955 AGE: 65 SEX: F [place] [address] LOC: Y.MRI PHONE #: [phone] EXAM DATE: 08/15/2020 STATUS: [facility] FAX #: [phone] RAD #: D/C DT PAGE 1 Signed Report Patient Name: SAMMIE JACKSON Unit No: [id number] EXAMS: CPT CODE: [id number] XR L-SPINE W/BEND VIEW 01358 (Continued) Orig Print D/T: S: 08/15/2020 (1643) [facility] NAME: SAMMIE JACKSON [address] [facility] PHYS: Fly Davison MD : 1955 AGE: 65 SEX: F [place] [address] LOC: Y.MRI PHONE #: [phone] EXAM DATE: 08/15/2020 STATUS: [facility] FAX #: [phone] RAD #: D/C DT PAGE 2 Signed Report - MRI L-SPINE W/O 2020-08-05 CONT 15:10:00 [facility] 1955 Sex: F Patient Name: SAMMIE JACKSON Unit No: [id number] EXAMS: CPT CODE: [id number] MRI L-SPINE W/O CONT 57196 MRI OF THE LUMBAR SPINE: DIAGNOSIS: 1. At L1-2, disc desiccation. No central canal or foraminal stenosis. 2. At L2-3, disc desiccation. No central canal or foraminal stenosis. 3. At L3-4, disc desiccation. No central canal or foraminal stenosis. 4. At L4-5, mild disc degeneration. There is a mild grade 1 spondylolisthesis of L4 and L5. Mild to moderate central canal stenosis secondary to thickening of ligamenta flava and moderate to marked bilateral facet arthropathy. No foraminal stenosis. 5. At L5-S1, no disc bulge or herniation. No central canal or foraminal stenosis. Mild facet arthropathy. COMMENT: COMPARISON: No prior exams available. Sagittal T1, T2 and STIR and axial T1 and T2-weighted sequences are obtained of the lumbar spine. The lumbar vertebrae are within normal limits in signal. The findings are as above. The conus is in the expected location. at 1510 Reported and signed by: Brook Segovia MD CC: Fly Khan MD Technologist: Uriel Don(R) Transcribed D/ (1510) IsidroGVG [facility] NAME: SAMMIE JACKSON [address] [facility] PHYS: Fly Davison MD : 1955 AGE: 65 SEX: F [place] [address] LOC: Y.MRI PHONE #: [phone] EXAM DATE: 08/05/2020 STATUS: REG [facility] FAX #: [phone] RAD #: D/C DT PAGE 1 Signed Report Patient Name: SAMMIE JACKSON Unit No: [id number] EXAMS: CPT CODE: [id number] MRI L-SPINE W/O CONT 21423 (Continued) Orig Print D/T: S: 08/05/2020 (1513) [facility] NAME: SAMMIE JACKSON [address] [place] [address] PHYS: Fly Davison MD : 1955 AGE: 65 SEX: F [place] [address] LOC: Y.MRI PHONE #: [phone] EXAM DATE: 08/05/2020 STATUS: REG [facility] FAX #: [phone] RAD #: D/C DT PAGE 2 Signed Report - XR FLUORO FOR 2019-09-10 Patient Name: SPINE INJ 15:09:00 SAMMIE JACKSON Unit No: [id number] EXAMS: CPT CODE: [id number] XR FLUORO FOR SPINE INJ 57097 CERVICAL TRANSFORAMINAL INJECTION REFERRING PHYSICIAN: PREOPERATIVE DIAGNOSIS: Cervical radiculitis POSTOPERATIVE DIAGNOSIS: Left cervical radiculopathy PROCEDURES PERFORMED: Fluoroscopically guided needle localization of the left C6, left C7 spinal nerves with transforaminal epidural steroid injection/injections. 2. Transforaminal epidurogram/epidurogram s at left C6, left C7 FINDINGS: Poor filling left C6, left C7. Concordant provocation left C7 shoulder. Pain relief-100%. ANTIBIOTICS:Cefazolin ESTIMATED BLOOD LOSS: Minimal ANESTHESIA: (TIVA ) Total intravenous anesthetic (patient intolerant to sedatives and hypnotics) COMPLICATIONS: None DETAILS OF PROCEDURE: After obtaining stable vital signs, informed consent and IV access, with no known contraindications to proceeding, the patient was taken to the fluoroscopy suite and placed in a supine position with all extremities padded and appropriate monitors placed. A sterile prep and drape was performed over the cervical spine. Using fluoroscopic visualization at each level the insertion site was marked for a paravertebral approach to the foramen. Using standard technique, a 27gauge needle was advanced to the base of the pedicle. In AP view, final positioning was obtained outside the 6 on a clock position on the pedicle. Then, 0.5 ml of Isovue-300 contrast was injected to produce the epidurograms. No paresthesias were elicited with needle insertion or injection and there were no signs of intravascular or intrathecal uptake. Then, 0.5 ml of 4% lidocaine was injected as a test dose with no signs of intravascular or intrathecal uptake. Next, 10 mg of Decadron was injected incrementally with frequent negative aspirations.Each subsequent cervical nerve root sleeve was done with the same technique and medications were used.There were no signs of intravascular or intrathecal uptake. The patient's vital signs remained stable. The patient was taken to the PACU in good condition. [facility] NAME: SAMMIE JACKSON [address] [facility] PHYS: CASSI - Hu Low MD [place], [place] [address] : 1955 AGE: 64 SEX: F LOC: DARIEL PHONE #: [phone] EXAM DATE: 09/10/2019 STATUS: [facility] FA[facility] #: [phone] RAD #: D/C DT PAGE 1 Signed Report (CONTINUED) Patient Name: SAMMIE JACKSON Unit No: [id number] EXAMS: CPT CODE: [id number] XR FLUORO FOR SPINE INJ 77310 (Continued) at 0882 Reported and signed by: Hu Low M.D. CC: Technologist: Joleen Trevino(R) Transcribed D/ (1722) [facility] NAME: SAMMIE JACKSON [address] [facility] PHYS: CASSI - Hu Low MD [place], [place] [address] : 1955 AGE: 64 SEX: F LOC: DARIEL PHONE #: [phone] EXAM DATE: 09/10/2019 STATUS: [facility] FAX #: [phone] RAD #: D/C DT PAGE 2 Signed Report Patient Name: SAMMIE JACKSON Unit No: [id number] EXAMS: CPT CODE: [id number] XR FLUORO FOR SPINE INJ 47273 (Continued) Orig Print D/T: S: 09/10/2019 (1512) [facility] NAME: SAMMIE JACKSON [address] [facility] PHYS: CASSI - DoctorHu MD [place] [id number] : 1955 AGE: 64 SEX: F LOC: DARIEL PHONE #: [phone] EXAM DATE: 09/10/2019 STATUS: [facility] FAX #: [phone] RAD #: D/C DT PAGE 3 Signed Report CSF CULTURE + GRAM STAIN 2019-07-18 13:14:00 Test Item Value Reference Range Interpretation Comme nts CULTURE (BEAKER) (test code = 1095) No growth GRAM STAIN RESULT (BEAKER) (test code = 1123) 1+ White blood cells seen GRAM STAIN RESULT (BEAKER) (test code = 07561) No organisms seen [id number] 16:15:00Medical Cytology Report Case: [id number] Authorizing Provider: Shun Peoples MD Collected: 07/16/201912:34 PM Ordering Location: [address] Received: 07/17/2019 08:30 AM Service Pathologist: Latosha Nesbitt MD Specimen: CSF CEREBROSPINAL FLUID (CYTOSPINS): - PREDOMINANTLY BLOOD - NEGATIVE FOR EPITHELIAL MALIGNANCY Signing Pathologist Direct Phone Line: [phone] signed byLatosha Nesbitt MD on 07/17/2019 at 4:15 [id number] of breast cancer (2010 s/p right mastectomy, now MEE) presenting with left-sided numbness, primarily facial but also involves LUE, torso and LLE. CEREBROSPINAL FLUID (CYTOSPINS)7.5 mls blood-tinged fluid; 2 cytospinsCollected: [id number]: [id number].[facility], Department of Pathology, [address] [place] [address], [facility] of [facility], [address] [place] [address], [facility], [facility] of [facility], [address] [place] [address], NBK CELL COUNT [id number] 14:03:00 Test Item Value Reference Range Interpretation Comments APPEARANCE CSF (BEAKER) (test Clear Clear code = 407) COLOR CSF (BEAKER) (test code = Colorless Colorless 408) RBC CSF (BEAKER) (test code = 2585 /cu mm 0-5 H 409) WBC CSF (BEAKER) (test code = 1 /cu mm <=5 1020) RBCS FRESH (BEAKER) (test code = 100% Fresh 1444) NUMBER OF CELLS DIFF'D (BEAKER) 50 (test code = 1591) NEUTROPHIL, CSF (BEAKER) (test 8 % 0-5 H code = 324) LYMPHS CSF (BEAKER) (test code = 92 % 40-80 H 438) MONO/MACROPHAGE CSF (BEAKER) 0 % 15-45 L (test code = 439) EOSINOPHILS CSF (BEAKER) (test 0 % <=0 code = 360) BASO CSF (BEAKER) (test code = 0 % <=0 440) TUBE NUMBER CSF (BEAKER) (test Edta code = 2678) GLUCOSE, [id number] 13:15:00 Test Item Value Reference Range Interpretation Comments GLUCOSE CSF (BEAKER) (test code = 63 mg/dL 40-70 406) Liner Checker CHEVY ANGULO FPROTEIN, [id number] 13:15:00 Test Item Value Reference Range Interpretation Comments PROTEIN CSF (BEAKER) (test code = 32 mg/dL 15-45 378) Liner Checker CHEVY ANGULO FHEMOGLOBIN [id number] 08:39:00 Test Item Value Reference Range Interpretation Comments HEMOGLOBIN A1C (BEAKER) (test code = 4.6 % 4.3-6.1 368) BASIC METABOLIC [id number] 06:05:00 Test Item Value Reference Range Interpretation Comments SODIUM (BEAKER) (test 142 meq/L 136-145 code = 381) POTASSIUM (BEAKER) 3.7 meq/L 3.5-5.1 (test code = 379) CHLORIDE (BEAKER) 108 meq/L 98-107 H (test code = 382) CO2 (BEAKER) (test 27 meq/L 22-29 code = 355) BLOOD UREA NITROGEN 14 mg/dL 7-21 (BEAKER) (test code = 354) CREATININE (BEAKER) 0.82 mg/dL 0.57-1.25 (test code = 358) GLUCOSE RANDOM 94 mg/dL 70-105 (BEAKER) (test code = 652) CALCIUM (BEAKER) 9.1 mg/dL 8.4-10.2 (test code = 697) EGFR (BEAKER) (test INSUFFIC IENT CLINICAL code = 1092) DATA TO CALCULA TE ESTIMATED GFR. Liner Checker ID - PIAYA LCBC W/PLT COUNT & AUTO [id number] 05:31:00 Test Item Value Reference Range Interpretation Comments WHITE BLOOD CELL COUNT (BEAKER) 5.9 K/ L 3.5-10.5 (test code = 775) RED BLOOD CELL COUNT (BEAKER) 4.39 M/ L 3.93-5.22 (test code = 761) HEMOGLOBIN (BEAKER) (test code = 14.3 GM/DL 11.2-15.7 410) HEMATOCRIT (BEAKER) (test code = 43.9 % 34.1-44.9 411) MEAN CORPUSCULAR VOLUME (BEAKER) 100.0 fL 79.4-94.8 H (test code = 753) MEAN CORPUSCULAR HEMOGLOBIN 32.6 pg 25.6-32.2 H (BEAKER) (test code = 751) MEAN CORPUSCULAR HEMOGLOBIN CONC 32.6 GM/DL 32.2-35.5 (BEAKER) (test code = 752) RED CELL DISTRIBUTION WIDTH 12.9 % 11.7-14.4 (BEAKER) (test code = 412) PLATELET COUNT (BEAKER) (test 271 K/CU MM 150-450 code = 756) MEAN PLATELET VOLUME (BEAKER) 10.7 fL 9.4-12.3 (test code = 754) NUCLEATED RED BLOOD CELLS 0 /100 WBC 0-0 (BEAKER) (test code = 413) NEUTROPHILS RELATIVE PERCENT 44 % (BEAKER) (test code = 429) LYMPHOCYTES RELATIVE PERCENT 43 % (BEAKER) (test code = 430) MONOCYTES RELATIVE PERCENT 10 % (BEAKER) (test code = 431) EOSINOPHILS RELATIVE PERCENT 2 % (BEAKER) (test code = 432) BASOPHILS RELATIVE PERCENT 1 % (BEAKER) (test code = 437) NEUTROPHILS ABSOLUTE COUNT 2.59 K/ L 1.56-6.13 (BEAKER) (test code = 670) LYMPHOCYTES ABSOLUTE COUNT 2.54 K/ L 1.18-3.74 (BEAKER) (test code = 414) MONOCYTES ABSOLUTE COUNT (BEAKER) 0.59 K/ L 0.24-0.36 H (test code = 415) EOSINOPHILS ABSOLUTE COUNT 0.12 K/ L 0.04-0.36 (BEAKER) (test code = 416) BASOPHILS ABSOLUTE COUNT (BEAKER) 0.04 K/ L 0.01-0.08 (test code = 417) IMMATURE GRANULOCYTES-RELATIVE 0 % 0-1 PERCENT (BEAKER) (test code = 2801) LIPID [id number] 05:30:00 Test Item Value Reference Range Interpretation Comments TRIGLYCERIDES (BEAKER) (test code = 117 mg/dL 540) CHOLESTEROL (BEAKER) (test code = 207 mg/dL 631) HDL CHOLESTEROL (BEAKER) (test code 62 mg/dL = 976) LDL CHOLESTEROL CALCULATED (BEAKER) 122 mg/dL (test code = 633) Triglyceride Reference Range: Low Risk <150 Borderline 150-199 High Risk 200- 499 Very High Risk >=500Cholesterol Reference Range: Low Risk <200 Borderline 200-239 High Risk >240HDL Cholesterol Reference Range: Low Risk >=60 High Risk <40LDL Cholesterol Reference Range: Optimal <100 Near Optimal 100-129 Borderline 130-159 High 160-189 Very High >=190 Liner Checker ID - ELMA SINGLETONR, BRAIN, [id number] 03:02:00FINAL REPORT MRI brain with and without contrast Comparison: None. Reason for exam: left-sided numbness, breast cancer history, would like to r/o CVA, metastatic disease Technique:Multiplanar multi sequential MR imaging of the brain was provided [id number] IV gadolinium administration. Findings: There are punctate T2/FLAIR hyperintensities in the bilateral periventricular and subcortical white matter without mass effect, nonspecific but likely represent mild white matter micro vascular ischemic changes. There is no restricted diffusion to suggest an acute infarct. There is noabnormality on susceptibility sequences to suggest hemorrhage or hemosiderin deposition. There is nointracranial mass, mass effect, extra-axial collection, hydrocephalus or herniation. There is no abnormal enhancement. The skull base flow-voids are seen in keeping with their patency. The visualized paranasal sinuses and mastoid air cells are clear. The orbits, sella and parasellar regions are unremarkable. The craniocervical junction is normal. There is a subcentimeter T1/T2 hyperintensity in the left parietal calvarium, nonspecific. Impressions: No acute infarct or evidence of intracranial metastases. Signed: Nasrin King Verified Date/Time: 07/16/2019 03:02:42 , MRA, BRAIN, WITHOUT [id number] 02:54:00FINAL REPORT MRA head and neck without contrast. CLINICAL HISTORY: Left-sided weakness.. COMPARISON: None. TECHNIQUE: Two- and three- dimensional [id number] MRA images of the intra- and extracranial carotid and vertebral arterial circulations were obtained, from which maximal intensity projection 3-D reconstructions were created. FINDINGS: MRA neck: There is no vessel occlusion or NASCET-quantifiable stenosis in the extracranial carotid or vertebral arterial circulations. Flow is antegrade in both vertebral arteries. MRA cher[place]ae [place] of [place]: There is no vessel occlusion, flow-limiting stenosis, or aneurysm in the intracranial carotid or vertebrobasilar arterial circulations. IMPRESSION: Negative intra- and extracranial MRAs. Signed: Nasrin King Verified Date/Time: 07/16/2019 02:54:02 MR, MRA, NECK, WITHOUT IV [id number] 02:54:00FINAL REPORT MRA head and neck without contrast. CLINICAL HISTORY: Left-sided weakness.. COMPARISON: None. TECHNIQUE: Two- and three-dimensional [id number] MRA images of the intra- and extracranial carotid and vertebral arterial circulations were obtained, from which maximal intensity projection 3-D reconstructions were created. FINDINGS: MRA neck: There is no vessel occlusion or NASCET-quantifiable stenosis in the extracranial carotid or vertebral arterial circulations. Flow is antegrade in both vertebral arteries. MRA cher[place]ae [place] of [place]: There is no vessel occlusion, flow-limiting stenosis, or aneurysm in the intracranial carotid or vertebrobasilar arterial circulations. IMPRESSION: Negative intra- and extracranial MRAs. Signed: Nasrin King MDReport Verified Date/Time: 07/16/2019 02:54:02 [id number] 11:21:00HEART RATE: 63 bpmRR Interval: 952 msAtrial Rate: 62 msP-R Interval: 136 msP Duration: 104 msP Horizontal [place]: -14 degP Front [place]: 28 degQ Onset: 507 msQRSD Interval: 96 msQT Interval: 402 msQTcB: 412 msQTcF: 409 msQRS Horizontal [place]: -43 degQRS [place]: 9 degI-40 Horizontal [place]: 22 degI- 40 Front [place]: 46 degT-40 Horizontal [place]: -58 degT-40 Front [place]: -3 degT Horizontal [place]: 36 degT Wave [place]: 55degS-T Horizontal [place]: 46 degS-T Front [place]: 86 degECG Severity: - BORDERLINE ECG -ECG Impression: Sinus rhythmECG Impression: Probable left atrial enlargementBMP, BASIC METABOLIC [id number] 13:59:00 Test Item Value Reference Range Interpretation Comments SODIUM (test code = 141 MMOL/L 137-145 NA) K+ (test code = 4.1 MMOL/L 3.5-5.1 PLEASE NOTE NEW KSERUM) REFERENCE RANGE (S) IN EFFECT EFFECTIVE 010 - NEW ANALYZER (V ITROS 5600) CHLORIDE (test code 101 MMOL/L 98-107 = CL) CO2 (test code = 30 MMOL/L 22-30 CO2) BUN (test code = 16 MG/DL 7-17 BUN) CREA (test code = 0.8 MG/DL 0.7-1.2 CREA) GLUCOSE (test code 89 MG/DL 70-99 Fasting glucose = GLUCOSE) normal <100 MG/ DL- [employer] recommendation* * CALCIUM (test code 9.6 MG/DL 8.4-10.2 = CABLOOD) GFR (test code = 78 A GFR of >9 0 GFR) mL/min/1.73m2 mL/min/1.73m2 is considered norm al. [id number] 13:31:00 Test Item Value Reference Range Interpretation Comments GLUCOSE (test code = URGLU) NEGATIVE MG/DL NEG-100 BILIRUBN (test code = URBILI) NEGATIVE NEGATIVE KETONE (test code = URKET) NEGATIVE MG/DL NEGATIVE BLOOD (test code = URBLD) NEGATIVE UR PH (test code = URPH) 6.0 5.0-7.5 PROTEIN (test code = URPRO) NEGATIVE MG/DL NEGATIVE NITRITES (test code = URNIT) NEGATIVE NEGATIVE UROBILINGEN (test code = 0.2 EU/DL 0.2-1.0 URURO) LEUKOCYT (test code = URLEU) NEGATIVE NEGATIVE UA COLOR (test code = UA YELLOW YELLOW COLOR) CLARITY (test code = CLARITY) CLEAR CLEAR SP GRAV (test code = URSPGRAV) <=1.005 1.000-1.025 UAMICRO (test code = UAMICRO) NO [id number] 13:22:00 Test Item Value Reference Range Interpretation Comments WBC (test code = 5.0 K/UL 3.5-10.9 WBC) RBC (test code = 4.01 M/UL 4.0-5.0 RBC) HGB (test code = 12.9 G/DL 11.5-15.5 HGB) HCT (test code = 38.2 % 34-46 HCT) MCV (test code = 95.3 FL 80-98 MCV) MCH (test code = 32.2 PG 28-32 H MCH) MCHC (test code = 33.8 G/DL 32.5-36.5 MCHC) RDW (test code = 12.7 % 11.5-14.5 RDW) PLT (test code = 251 K/UL 150-450 PLT) MPV (test code = 11.0 FL 7.4-10.4 H MPV) MANDIFF (test code = NO MANDIFF) SCAN (test code = NO SCAN) NEUT% (test code = 51.3 % 40-75 NEUT%) LYMPH% (test code = 36.3 % 24-44 LYMPH%) MONO% (test code = 9.0 % 0-13 MONO%) EOS% (test code = 2.4 % 0-4 EOS%) BASO % (test code = 0.8 % 0-2 BASO%) IG% (test code = 0.2 % 0-1 IG% = Metam yelocytes, IG%) Myelocytes, and Promyelocytes. (Immature neutr ophils not including " bands".) > 3% IG indic ates risk of sepsis NRBC% (test code = 0 /100 WBC NRBC%) ABS NEUT (test code 2.6 K/UL 1.2-7.2 = NEUT) CHEST 1 [id number] 13:05:[address] [id number] IMAGING REPORTPatient Name: SAMMIE JACKSONte of Service: [id number]: 62 Sex: F Order #: [id number] Room: [facility]: 1955 X-Ray Number: [id number] Record Number: [id number] Hospital Number: [id number] Physician: Jose BOLAÑOS Physician: Lazaro BOLAÑOS.10/17/2017 12:57 PMHistory: Shortof breath.Technique: Single AP chest projection.Findings: Single chest projection demonstrates normal heart size and clearlungs. No infiltrates or abnormalities are depicted. The osseous structuresappear intact. There are surgical changes over the right hemithorax.Impression:No acute-appearing cardiopulmonary abnormalities.Electronically Signed By: Lucio Garcia M.D., 10/17/2017 1:03 PMLegally authenticated by CANDIE Harper 2017-10-17 13:03:02
[2022-05-06] MEDS ORDERED: MORPHINE 2 MG/ML SYR IV PRN (17:31)
[2022-05-06] MEDS: HYDROMORPHONE HCL 1 MG/ML INJ ONE ×2 (17:34→17:43)
[2022-05-06] MEDS ORDERED: HYDROMORPHONE HCL 1 MG/ML INJ ONE (17:58)
[2022-05-06 18:08] VITALS: O2SAT 98
[2022-05-06] MEDS: Ringers Lactate 1,000 ML IV SCH (18:39)
[2022-05-06 20:26] VITALS: BMI 22.3
[2022-05-06] MEDS ORDERED: ZOLPIDEM TARTRATE 10 MG TABLET PO SCH (21:00)
[2022-05-06] MEDS: GABAPENTIN 300 MG CAP PO SCH (21:00)
[2022-05-06] MEDS: IBUPROFEN 600 MG TAB PO PRN (22:00)
[2022-05-07] MEDS: Ringers Lactate 1,000 ML IV SCH ×2 (01:30→09:30)
[2022-05-07] MEDS: IBUPROFEN 600 MG TAB PO PRN ×3 (04:05→15:12)
[2022-05-07 06:44] LABS: Absolute Lymphocytes (CBC) 1.3 K/uL (0.7-4.9); Hematocrit 30.8 % (36.0-45.0); Lymphocytes % 20.5 % (15.3-44.8); MCV 94.5 fL (80-100); RBC Red Blood Cell Count 3.26 M/uL (3.86-4.86)
[2022-05-07 06:59] LABS: Potassium 4.1 mmol/L (3.5-5.1)
[2022-05-07] MEDS: GABAPENTIN 300 MG CAP PO SCH (08:23)
[2022-05-07] MEDS ORDERED: PSEUDOEPHEDRINE PO SCH (09:00)
[2022-05-07] MEDS ORDERED: MULTIVITAMIN TAB PO SCH (09:00)
[2022-05-07] MEDS ORDERED: VITAMIN D 1000 UNIT TAB PO SCH (09:00)
[2022-05-07] MEDS ORDERED: CETIRIZINE HCL PO SCH (09:00)
[2022-05-07 12:37] VITALS: BP 120/71; TEMP 98.5
--- NOTE | 2022-05-10 13:28 | OP ---
Date of Procedure: 05/06/2022 Surgeon: Angeli Demarco MD Licensed Social Worker: Elba Del Angel. Preoperative Diagnoses: Stage II uterovaginal prolapse, cystocele, history of breast cancer. Postoperative Diagnoses: Stage II uterovaginal prolapse, cystocele, history of breast cancer, and re ctocele, left paratubal para ovarian cyst. Procedures Performed: Total laparoscopic hysterectomy, bilateral salpingo-oophorectomy, pelvic washi ngs, sacrocolpopexy, with Upsylon Y-mesh, posterior wall repair, posterior enterocele repair, perineo rrhaphy, and cystoscopy. Estimated Blood Loss: 100. Specimens: Uterus, tubes, ovaries, pelvic washings. Findings: 0, +1, -1, 4.5, moderate 8, 0, 0, -5. After the reconstruction was performed, her POP-Q w as -2, -3, -8, -7, -2, -3, 3.5 moderate, 7 cm, -3, -3, and on cystoscopy, both ureteric orifices had strong jets of urine from both of them. No evidence of any injury to the bladder. On intraabdominal examination, the left paratubal cyst was evident, could be paraovarian as well, difficult to differe ntiate clinically. Uterus with a fibroid. No other abnormal findings. Y-mesh was placed, peritonea lized, Y-mesh secured to the distal Prolene sutures on the anterior and posterior arms on either side and a 5-point fixation, anterior and posterior lesion closed with 2-0 Prolene sutures. So other 3 s utures were done 2-0 V-Loc, hysterectomy, and cuff closure with 2 layers V-Loc and sacral fixation wi se and ProTac on the anterior longitudinal ligament, which is very well exposed. On posterior repair , there was a site-specific defect detachment of the distal rectovaginal septum from the superior con tinuum of the connective tissue from the apex detached from the sidewall on both sides of the island and it was raised like an island of connective tissue and perineal body was also completely disrupted . Site-specific defect repair was done on the posterior wall in the enterocele was used. The patient is a 67-year-old female presenting with a prolapse symptomatic history of breast cancer, incomplete emptying was diagnosed with vaginal atrophy during her stage II prolapse. She had breast cancer and treatment for that, we did vaginal sling radiofrequency treatment for getting h er vaginal atrophy improved before the repair was done. After discussing about all her symptoms and her Pop-Q evaluations done and was very similar to her pa st, slightly worse anterior defect. We discussed about the hysterectomy with sacral colpopexy or tazlina rosacral ligament suspension. Strong uterosacrals were found. Then, after patient was consented for this procedure, she was taken back to the operating room. Benefits, risks, and side effects of this procedure were discussed in detail. Description Of Procedure: After informed consent was verified, she was taken back to OR, placed in s upine fashion on the operating table, general anesthesia was given. She was placed in dorsal lithoto my position using Ronaldo stirrups where abdomen with ChloraPrep and vulva, vagina, and perineum with B etadine was done and draped in a sterile fashion. Sprague was placed to drain the bladder and attached to retrograde filling and a medium VCare introduced into the uterus after dilating the cervix to 20- Lithuanian. Once all these were draped, then went to the upper part. A medium cup VCare was introduced in the vagina for manipulation. A 1 cm supraumbilical incision was made in the midline with a scalpel using the open laparoscopy tech nique. Fascia was incised with a 15 blade and entry into the peritoneal cavity was obtained with sha rp dissection of the peritoneum and the edges tagged with 0 Vicryl sutures on both sides. After Trever on was introduced, an adequate insufflation was done, procedure was started suprapubic and right lower quadrant 5 port and 8 mm left lower quadrant ports were all placed under direct visualiz ation. After surveying the pelvic cavity, upper abdominal surface completely unremarkable and omentu m, the rest of the pelvic findings as above. After she was placed in the the rectum and r ectosigmoid were picked up and sutured together and brought out with the 3-0 Monocryl. The left uppe r quadrant with the retracting needle. 0.5% Marcaine 5 cc each was injected at each of the trocar sites. An 8 mm port was placed in the lef t lower quadrant without any problems and the injection at the Virgil-Niesha needle site was made, there was another 5 cc injected. After all the injections were done, there was at least 25-30 mL uti lized. This was 0.5% Marcaine. Procedure was started after taking down adhesions of the sigmoid colon to the left lateral wall and t hese were taken down from the mid pelvis up . The medial salpinx on the left side was firs t taken down with the help of the LigaSure. Once this was done, then a window was made on the medial aspect of the broad ligament between the ovary and the ureter and once this was down, then it was ea sy for me to take the IP ligament with the help of the LigaSure. Once this was cut and removed and d etached, the rest of the mesosalpinx was dissected and round ligament exposed, round ligament was shady en down with the help of the LigaSure. The anterior and posterior broad ligaments were opened up, th e broad ligament was taken down, exposing the vessels, anterior broad ligament opened up to raise the bladder flap all the way to the right side posteriorly to the cup and the vessels were exposed and t aken down with the LigaSure. Opposite side, the dissection was started in a similar fashion, incisin g the mesosalpinx anterior leaf. Then, the opening of the posterior leaves between the ureter and th en taking down the distal tube slightly detaching it from the lateral wall and taken the IP. The res t of the mesosalpinx were taken down, round ligament taken down, the anterior and posterior broad lig aments were opened up anteriorly, connected to the bladder flap and posteriorly taken to the uterosac ral ligament. The uterosacral ligaments were extremely poor on the right more than the left side, bu t both of them appeared to be elongated and optimal for suspension for a good long-term result. The plan was to perform a sacral colpopexy. After the hysterectomy, after the vessels were identified on this side, they were taken down with the help of the LigaSure and once this was done, the cardinal ligaments, the leftover cardinal ligaments were detached and removed as well. Circumferential colpotomy with a monopolar hook blade on cauteri zing and cutting current. After hemostasis was secured at the site of the uterosacral attachment on the right side, this was cauterized with the help of the bipolar curved tip and 2-0 V-Loc was used to close the entire cuff in 2 layers from right to left enough and with 2 back sutures for recoil. Thorough irrigation and suction were performed. After this, the specimen was retrieved and cuff was closed. Excellent hemostasis, no evidence of any injury to the electrical, mechanical, or thermal in jury to the ureters. Setting was done for a sacral colpopexy at this time. Bowel tacked to the left side, the sacral prom ontory was identified within the lateral margin of the sigmoid, the internal iliac, the ureter on the lateral aspect, the peritoneum was picked up, and it opened up to do a sacral dissection. Once this was opened up and peritoneal incision extended to the remnant of the left uterosacral anteriorly on the posterior leaf and posterior leaf was opened up and dissecting on the posterior vaginal wall at l east 6 cm was opened up anteriorly was able to open up another 3.5 cm of the anterior wall carefully opening making windows and pushing it down. Once adequate exposure was performed in the anterior and posterior wall from the sacral promontory, Y -mesh was secured. This was opened up and cut to 8 cm of length on each arm. The anterior arm was s utured to the sacral arm with 0 silk suture. The loose tie was placed and the inner aspect of the po sterior loose tie was taken with the help of V-Loc with a knot in and then this was secured to the mi dline distal wall mesh graft and 2-0 PDS sutures were taken, one for each distal posterior aspect. O nce these were tied down on the mash without clean plane and 2-0 V-Loc were used more proximally on t he vaginal wall, did not displace the graft. Then, the sacral promontory suspension was done to check the tension and once it was appro priate and placed 5 cm from the crotch aligned, this was tacked to the sacral promontory. Eight stap les had to be placed with the graft folded up and this was because 2 of the miguelito were not on the m h and were in between and moments laid off the tacks. Anterior fixation was done with 2-0 Prolene sutures in the distal half and the distal portion and the n central to lateral apical tacked with Monocryls with the 2 V-Loc. The vaginal exam was performed a t this time to make sure that the suspension was good all to the equals -2. After all the securement was done and the vaginal exam showed adequate suspension and the epithelium of the peritoneum was closed with the help of a continuous running 2-0 V-Loc and this was done after this coming down all the way to the center in the right and into the central point. Thoro ugh irrigation and suction were performed. No evidence of electrical, mechanical, or thermal injury to the ureters. The trocars were removed under direct visualization. 20 cc again, 5 cc at each port site were inject ed to a total of 20 for the case which was like about 3-1/2 hours later. Went on to the perineal procedure. After the fascia was closed with the tag 0 Vicryl sutures tied to each other and all skin incisions closed with the help of interrupted 4-0 Vicryl. Perineal hymenal remnants were picked up with Allis clamps x2. A eyal-shaped skin incision was ma de including the distal end of the vaginal and the perineum. The epithelium was taken down from the perineum attached to the superior rectovaginal septum in the upper part of the canal or t o the perineal body. This was confirmed on rectal exam. Gloves were changed. Then went down to rep air the site-specific defect and bring the tissues together and a vertical plane and laterally suture d to the lateral sulci as the through this with a 2-0 PDS was locked in, reduced the enter ocele as well at this time with a pursestring. The perineal body reconstruction was performed with the help of 2-0 PDS and a 2-0 Vicryl. The vagina l epithelium was closed in a Y-shaped. Rectal exam was performed and was found unremarkable. After laparoscopic procedure, cystoscopy was performed, which was also negative with strong jets of urine. The Sprague was left in place. The patient was recovered from anesthesia and taken to PACU in stable c ondition. Her procedure . LAURA/MARLENAL Voice ID: [id number] Report ID: [id number]
--- NOTE | 2022-05-10 13:32 | OP ---
Date of Procedure: 05/06/2022 Surgeon: Angeli Demarco MD Chin Strap Sewer: Elba Del Angel. Preoperative Diagnoses: Stage II uterovaginal prolapse, cystocele, history of breast cancer. Postoperative Diagnoses: Stage II uterovaginal prolapse, cystocele, history of breast cancer, and re ctocele. Procedures Performed: Total laparoscopic hysterectomy, bilateral salpingo-oophorectomy, pelvic washi ngs, sacral colpopexy, laparoscopic then vaginal posterior wall and vaginal enterocele repair, perine orrhaphy and cystoscopy. Estimated Blood Loss: 100. Urine Output: 350. Fluids: 1600 LR. Anesthesia: General endotracheal. Specimens: Uterus, tubes, and ovaries and pelvic washings. Implants: Upsylon Y mesh. Findings: POP-Q 0 +1, -1, 4.5, moderate 800 -5. On cystoscopy after the procedure was completed, pa tent ureters with strong jets of urine from both UOs (ureteric orifices) Left tubal cyst. The patient is a 67-year-old presented with significant vaginal prolapse, symptomatic. On evaluation , she had a stage II prolapse, significant vaginal atrophy, and dyspareunia. She was treated with ra diofrequency, vaginal therapy as she has contraindications to vaginal hormone therapy. Then, brought back after all the 3 treatments for that evaluation and discussion. Discussed about all the differe nt options including laparoscopic and vaginal repairs. Recommend laparoscopic repair with removal of uterus, tubes, and ovaries, uterosacral suspension, or sacral colpopexy. There were no both uteros acral ligaments available. The patient understood the benefits and risks of the procedure and was co nsented. She underwent urodynamic testing with slightly elevated postvoid residual. No demonstrable stress urinary incontinence. Voiding dysfunction counseling done. She is status post mid urethral sling 3 years ago. Pelvic floor rehab recommended postoperatively. Preoperatively discussed all these and consented. Description Of Procedure: She was taken back to OR, placed in supine position on operating table. G eneral anesthesia was given. A 2 g of Ancef were given. SCDs were placed. She was placed in a dors al lithotomy position using Ronaldo stirrups. Arms tucked by the side. Positioning checked. Abdomen was prepped with ChloraPrep. Vulva, vagina, and perineum with Betadine. Time-out was done. She was draped in a sterile fashion and the procedure started. Speculum placed to expose the cervix. Anter ior lip grasped with 2 Allis clamps, dilated to 16-[place], and a medium VCare introduced and fixed in place. Sprague was placed to drain the bladder and attached to retrograde filling. This area was omid ped. A supraumbilical incision was made with a scalpel using the open laparoscopy technique. Fascia was i ncised, tagged with 0 Vicryl sutures sharply. Cameron introduced. Site of entry was check ed and was unremarkable. Upper abdominal surface was unremarkable as well. The patient was placed i n right lower quadrant ports were placed under direct vision. The sigmoid colon epiploicae were tagged with a 3-0 Monocryl and retracted through the left upper quadrant using a VirgilCongoTyrell n needle to retrieve the sutures and held with a hemostat. Procedure was started. Pelvic survey was done. Pelvic washings were performed. The left mesosalpinx was opened up. IP ligament was isolate d. after visualizing the ureter from the pelvic brim to the ureteric tunnel no anatomical distortions. IP ligament was taken down with the help of the LigaSure. Then, the round ligament taken down. Ante rior and posterior broad ligament opened up mesosalpinx, isolating the IP, taking this ivan n the round ligament and broad ligament anterior and posteriorly opened to get the bladder flap anter iorly and posteriorly to the VCare cup. The vessels were identified and taken down with the help of the LigaSure again and cardinal ligament taken down with the help of the bipolar and the LigaSure. A nterior vaginal wall was dissected to push the bladder flap down exposing at least a cm and half of t he anterior vaginal wall being on the cup. Monopolar hook blade was used to perform a circumferentia l colpotomy and the specimen pulled out through the vagina. The cuff was closed with the help of a 2-0 V-Loc in a continuous running fashion starting from the ri ght to the left and back to the right in 2 layers. Thorough irrigation suction were performed. The vaginal retractor or elevator from [place] was taken for retraction, used to elevate the vagina anteriorly. Dissection was performed retractin g the bladder back and opening the prevesical space and avoiding entering into the vesicovaginal spac e. The bladder was dissected on the anterior vaginal wall at least 3.5 cm from the apex in the cente r and laterally as well, just adequate enough to accommodate the width of the Y mesh. Posterior dissection was performed peritoneum was incised inferior to this and to expose t he posterior vaginal wall. Dissection was carried close to the vaginal wall without entering it and taken down the pre-rectal flap all the way down to at least 5 cm down the posterior vaginal wall. To ignacio estimated length of the vagina was 8 cm. Once this dissection was done, the vaginal wall was exp osed wide enough to accommodate the mesh. The rectum was dropped posteriorly. Peritoneum at the anterior longitudinal ligament opened up, carefully not transecting the hypogastric nerve plexus by carefully opening the anterior presacral fat and once the anterior longitudinal liga ment was exposed, the middle sacral vessels were cauterized with the bipolar. Then, the peritoneal e xtension of the incision carried all the way to the posterior dissection across the remnant of the ut erosacral. The internal iliac and ureters were identified in their course and an incision was kept i n its center from these to the lateral margin of the sigmoid colon. Y mesh was taken and sutured posteriorly. Distal center was attached with the help of a [id number] ght 2-0 V-Loc, knot placed in the mesh to hold it there in place. Then, 2-0 PDS x2 were placed at th e distal lateral edges, anchoring it through the posterior fascia without entering the vaginal epithe lium. Once these were tied down, the Y mesh was retracted superiorly and anchored laterally in the p roximal part of the posterior vaginal wall with 2-0 V-Loc sutures, total of 5 sutures were placed. T hen, the sacral extension was taken to the sacrum and here after tensioning was verified with making sure that the elevator was removed, then I was holding the mesh at an appropriate level at the anteri or longitudinal ligament, but there was no significant prolapse present and it was not too tight, cre ating a band. Once optimal position for anchoring was configured, then ProTack device was taken and the tacks were placed on the anterior longitudinal ligament. Three tacks were placed and 1 of the me sh came loose from 1 of the tacks, so another 1 was placed in this row, then 4 more were placed. The re was excellent exposure of the anterior longitudinal ligament. Effort was made to avoid the ____. The anterior wall of the mesh was then attached to the anterior vaginal wall. Two lateral distal 2-0 Prolene sutures were placed through the connective tissue without entering the vaginal epithelium an d then attaching to the mesh. Then 3 [id number] 2-0 V-Loc were placed, 1 in the distal center a nd 2 in the proximal lateral aspects to hold the Y down without stitching the bifurcation of the Y ri ght at the vaginal apex. There was at least 2 cm left between the apex and the apex of the Y. Thorough irrigation suction was performed and the peritoneum was closed with the help of a 2-0 V-Loc in a continuous running fashion on the sacrum all the way down to the right one third of the lateral peritoneal closure, then, the left side was closed with a similar 2-0 V-Loc suture. Vaginal exam was performed. There was optimal elevation, slight droop in the distal anterior wall. However, this wa s very insignificant compared to very started. I preferred to have it slightly without tension to en sure tension-free repair. Cystoscopy was performed. Strong jets of urine from both ureteric orifices were noted. No evidence of any measured trauma to the bladder or any tumors. All the trocars were removed. The fascia was closed with the help of the 0 Vicryl after desufflating the gas umbilicus, the fascia was closed with 0 Vicryl sutures tied to each other and the suprapubic site, [id number] was placed on the fascia. All skin incisions closed with the help o f 4-0 Monocryl interrupted sutures. The Monocryl from the bowel was the removed and hemostasis was ensured by visualizing it before the t rocars were pulled out. A 0.5% Marcaine was available for injecting the fascia at the beginning of the case. A 5 cc at each port site were injected before placing the trocars. Some of the Marcaine was injected at the skin le jaydon at the supraumbilical incision, which mostly was very superficial and then another 5 cc at the le ft upper quadrant Monocryl retraction site. At end of the case, which was at least 3.5 hours after t he beginning the first set of injections, another 20 mL was used 5 mL at each of the 4 sites for loca l anesthesia. No further 0.5% Marcaine used due to concern of avoiding overuse. Attention directed posteriorly to the posterior vaginal wall. Allis clamps were placed to hold the r emnants of hymen. Hamlet retractor was placed and Sprague was replaced and clamped with a K chyna. Triangular perineal incision was made and then another triangular incision in the distal one third of the vaginal wall was made on the epithelium after injecting dilute vasopressin. After the epitheli alizing the perineal skin and the vaginal epithelium in the distal third, then underlying connective tissue was and dissection carried superiorly, laterally on the perineum and the perineal nj dy to expose all the connective tissue. There was inverted V-shaped defect on the connective tissue, so 2-0 DS was taken and this was sutured together and then attached to the proximal part of the post erior vaginal wall connective tissue perineal body was reconstructed with the help of 2-0 PDS suture as well as 2-0 Vicryl sutures. Once this was done, then the vaginal epithelial closure wa s performed with the help of 2-0 Vicryl and perineal closure and subcutaneous and subcuticular 3-0 Vi cryl. Rectal exam was done and there were no evidence of any sutures or trauma here. The patient was recovered from anesthesia after the instrument, needle, and sponge counts x3 were cor rect. Plan is to keep her overnight and discharge her after a voiding trial. She has a 1-week follo wup with me in the office. Goals on the first postop visit prior to ensure good voiding trial. If she had a PVR of 150 and 200 at appointment, she could be from her prolapse. Pelvic floor physical therapy at 6 weeks if needed. Monitor for CASSY. Her devang d was briefed on her procedure. LAURA/ERIKA Voice ID: [id number] Report ID: [id number]
== END 2022-05-07 15:51 | disposition home or self-care (01) ==
LOC: OR 08:36 → 4TH 17:12
PROVIDERS: ADMIT Obstetrics & Gynecology; ATTEND Obstetrics & Gynecology
PROC: 0UT94ZZ Resection of Uterus, Percutaneous Endoscopic Approach (ICD-10-PCS; principal; 2022-05-07)
PROC: 0UT74ZZ Resection of Bilateral Fallopian Tubes, Percutaneous Endoscopic Approach (ICD-10-PCS; 2022-05-07)
PROC: 0UT24ZZ Resection of Bilateral Ovaries, Percutaneous Endoscopic Approach (ICD-10-PCS; 2022-05-07)
PROC: 0USG4ZZ Reposition Vagina, Percutaneous Endoscopic Approach (ICD-10-PCS; 2022-05-07)
PROC: 0JQC0ZZ Repair Pelvic Region Subcutaneous Tissue and Fascia, Open Approach (ICD-10-PCS; 2022-05-07)
PROC: 0UQF0ZZ Repair Cul-de-sac, Open Approach (ICD-10-PCS; 2022-05-07)
DX: N81.2 Incomplete uterovaginal prolapse (principal); N81.6 Rectocele; Z85.3 Personal history of malignant neoplasm of breast; Z20.822 Contact with and (suspected) exposure to COVID-19
CPT/HCPCS: 58571; 57425; 57250; 85025 ×2; 80048 ×2; 36415 ×2; 86900; 88108; 86850; 85610; 86901; 88305; 88307; 85730; 81003; 94010; 87811; G0379; J2704; J2710; J2001; J2250; J3010 ×2; J1100; J2270; A4216; J1170 ×2; G0378 ×3; J7120 ×4; J0690